=== PATIENT | male | born 1965 | race Caucasian/White ===

== ENCOUNTER 2024-07-18 19:20 | Emergency (ER) | payer OTHER, SELFPAY ==
[2024-07-18 19:21] VITALS: BP 187/111
[2024-07-18 19:46] LABS: % Basophils 0.1 % (0-2); % Eosinophils 0.9 % (0-6); % Immature Granulocytes 0.5 % (0-0.5); % Lymphocytes 2.8 % (20.5-51.1); % Monocytes 4.9 % (1.7-9.3); % Neutrophils 90.8 % (42.2-75.2); Absolute Eosinophils 0.1 10^3/uL (0-0.7); Absolute Immature Granulocytes 0.1 10^3/uL (0-0.05); Absolute Lymphocytes 0.4 10^3/uL (1.2-3.4); Absolute Monocytes 0.7 10^3/uL (0.1-0.6); Absolute Neutrophils 13.2 10^3/uL (1.4-6.5); Hematocrit 46.7 % (39.0-52.0); Hemoglobin 15.8 g/dL (13.0-18.0); Mean Corp Hgb Conc. 33.8 g/dL (33.0-37.0); Mean Corpuscular Hgb 30.7 pg (27.0-31.0); Mean Corpuscular Volume 90.7 fL (80.0-94.0); Mean Platelet Volume 9.3 fL (7.4-10.4); Nucleated Red Blood Cells % 0 % (-); Platelet Count 304 10^3/uL (130-400); Red Blood Cell Count 5.15 10^6/uL (4.70-6.10); Red Cell Dist. Width 13.3 % (11.5-14.5); White Blood Cell Count 14.6 10^3/uL (4.8-10.8)
[2024-07-18 20:06] LABS: ALT (SGPT) 47 U/L (0-50); AST (SGOT) 44 U/L (17-59); Albumin 4.7 g/dl (3.5-5.0); Alkaline Phosphatase 75 U/L (38-126); Blood Urea Nitrogen 22 mg/dl (9-20); Calcium 9.4 mg/dl (8.4-10.2); Carbon Dioxide 22 mmol/L (22-30); Chloride 105 mmol/L (98-107); Glucose 120 mg/dl (70-99); Lipase 94 U/L (23-300); Potassium 4.4 mmol/L (3.5-5.1); Sodium 137 mmol/L (135-145); Total Bilirubin 0.6 mg/dl (0.2-1.3); Total Protein 7.4 g/dl (6.3-8.2); eGFR > 60.00
[2024-07-18 20:14] LABS: Urine Albumin Negative (Neg - Trace); Urine Bilirubin Negative (Negative); Urine Character Clear (Clear); Urine Color Yellow; Urine Glucose Negative (Negative); Urine Ketone Trace (Negative); Urine Leukocyte Negative (Negative); Urine Nitrite Negative (Negative); Urine Occult Blood 2+ (Negative); Urine Urobilinogen Negative (Neg - 1+)
[2024-07-18 20:17] VITALS: BP 158/94
[2024-07-18 20:20] VITALS: BP 153/92
[2024-07-18 20:30] LABS: Urine Red Blood Cell 0-2 /HPF (0-2); Urine Squamous Cell 0-2 /LPF (Few); Urine White Cell 0-2 /HPF (0-5)
[2024-07-18] MEDS: PROTONIX IV 40 MG IV (20:56)
[2024-07-18] MEDS: TORADOL 15 MG IV (20:56)
[2024-07-18] MEDS: NSS 1000 IV (20:59)
[2024-07-18 21:00] VITALS: BP 137/91
[2024-07-18 22:00] VITALS: BP 137/91
--- NOTE | 2024-07-18 22:56 | ED.GENMED ---
History of Present Illness
<Josiah Velazco MD - Last Filed: 07/19/24 12:37>
General
Chief Complaint: Abdominal Pain
Source: patient
Exam Limitations: none
Time Seen by Provider: 07/18/24 20:33
Nursing documentation reviewed up to this point in time: agreed with
History of Present Illness
History of Present Illness:
Patient presents to ED secondary to persistent nonbloody diarrhea along with vomiting episodes, as well as abdominal cramping sensation, starting this afternoon. Patient's spouse has experienced similar symptoms 2 days ago, but now has improved.
Denies fever or chills. Denies dizziness. Denies weakness. Denies shortness of breath. Denies back pain. Denies recent travel.
Past History
<Josiah Velazco MD - Last Filed: 07/19/24 12:37>
Past History
ED Past Medical History: None
ED Past Surgical History: None
Review of Systems
<Josiah Velazco MD - Last Filed: 07/19/24 12:37>
Review of Systems
Allergies reviewed?: Yes
All Other Systems: ROS reviewed and negative except as documented in HPI and ROS
Constitutional: Reports no symptoms; Denies fever or chills
Respiratory: Reports no symptoms
Cardiac: Reports no symptoms
ABD/GI: Reports abdominal pain, nausea, vomiting and diarrhea
Musculoskeletal: Reports no symptoms
Skin: Reports no symptoms
Neurological: Reports no symptoms
Phy Exam
<Josiah Velazco MD - Last Filed: 07/19/24 12:37>
Physical Exam
Physical Exam:
Physical Exam
General: mild distress, not acutely ill. afebrile.
Head: nc/at. eomi
Neck: supple. no meningeal signs.
Heart: tachycardic, no murmur.
Lungs: no acute respiratory distress. clear bilaterally
Abdomen: normal bowel sounds. not tender. no distention
Neuro: alert and oriented. no focal neurological deficits
Skin: no rash
Psychiatric: well kept. interactive and cooperative
Extremities: no edema. no calf tenderness.
Course
<Josiah Velazco MD - Last Filed: 07/19/24 12:37>
Orders/Labs/Results
Orders:
Orders
07/18/24 19:26
Electrocardiogram (*1) Urgent
Reason for Study: Abdominal Pain
IV Insert/Care/Rem.- Treatment PRN
07/18/24 19:27
EKG- Treatment ONCE
07/18/24 19:38
Complete Blood Count/With Diff Urgent
Comprehensive Metabolic Panel Urgent
Lipase Urgent
07/18/24 19:59
Urinalysis Reflex To Culture Urgent
Date Specimen was Collected: 07/18/24
Time Specimen was Collected: 19:58
Urine Microscopic Reflex Cult Urgent
07/18/24 20:48
0.9% Sodium Chloride 1000 ml [Nss] 1,000 ml IV BOLUS
Ketorolac [Toradol] 15 mg IV NOW STA
Pantoprazole [Protonix IV] 40 mg IV NOW STA
07/18/24 23:16
Morphine Sulfate 2 mg IV NOW STA
07/19/24 00:52
Acetaminophen [Tylenol] 650 mg .ROUTE .STK-MED ONE
07/19/24 00:53
Acetaminophen [Tylenol] 650 mg PO NOW STA
07/19/24 02:20
Ibuprofen [Motrin] 800 mg .ROUTE .STK-MED ONE
07/19/24 02:23
Ibuprofen [Motrin] 800 mg PO NOW STA
Abnormal Lab Results
07/18/24 07/18/24
19:38 19:59
WBC 14.6 H 10^3/uL
(4.8-10.8)
Abs Immat Gran (auto) 0.1 H 10^3/uL
(0-0.05)
Absolute Neuts (auto) 13.2 H 10^3/uL
(1.4-6.5)
Absolute Lymphs (auto) 0.4 L 10^3/uL
(1.2-3.4)
Absolute Monos (auto) 0.7 H 10^3/uL
(0.1-0.6)
Neutrophils % 90.8 H %
(42.2-75.2)
Lymphocytes % 2.8 L %
(20.5-51.1)
BUN 22 H mg/dl
(9-20)
Glucose 120 H mg/dl
(70-99)
Urine Ketones Trace A
(Negative)
Ur Occult Blood Reflex 2+ A
(Negative)
07/18/24 19:38
07/18/24 19:38
Vital Signs
Initial and Last Documented VS:
Initial Vital Signs
Temp Pulse Resp BP Pulse Ox
99.0 F 131 20 187/111 98
07/18/24 19:21 07/18/24 19:21 07/18/24 19:21 07/18/24 19:21 07/18/24 19:21
Last Documented Vital Signs
Temp Pulse Resp BP Pulse Ox
100.7 F H 104 20 154/85 94
07/19/24 02:22 07/19/24 02:15 07/18/24 19:21 07/19/24 02:00 07/19/24 02:15
<Jenifer Nance DO - Last Filed: 07/19/24 06:34>
Orders/Labs/Results
Orders:
Orders
07/18/24 19:26
Electrocardiogram (*1) Urgent
Reason for Study: Abdominal Pain
IV Insert/Care/Rem.- Treatment PRN
07/18/24 19:27
EKG- Treatment ONCE
07/18/24 19:38
Complete Blood Count/With Diff Urgent
Comprehensive Metabolic Panel Urgent
Lipase Urgent
07/18/24 19:59
Urinalysis Reflex To Culture Urgent
Date Specimen was Collected: 07/18/24
Time Specimen was Collected: 19:58
Urine Microscopic Reflex Cult Urgent
07/18/24 20:48
0.9% Sodium Chloride 1000 ml [Nss] 1,000 ml IV BOLUS
Ketorolac [Toradol] 15 mg IV NOW STA
Pantoprazole [Protonix IV] 40 mg IV NOW STA
07/18/24 23:16
Morphine Sulfate 2 mg IV NOW STA
07/19/24 00:52
Acetaminophen [Tylenol] 650 mg .ROUTE .STK-MED ONE
07/19/24 00:53
Acetaminophen [Tylenol] 650 mg PO NOW STA
07/19/24 02:20
Ibuprofen [Motrin] 800 mg .ROUTE .STK-MED ONE
07/19/24 02:23
Ibuprofen [Motrin] 800 mg PO NOW STA
Abnormal Lab Results
07/18/2424
19:38 19:59
WBC 14.6 H 10^3/uL
(4.8-10.8)
Abs Immat Gran (auto) 0.1 H 10^3/uL
(0-0.05)
Absolute Neuts (auto) 13.2 H 10^3/uL
(1.4-6.5)
Absolute Lymphs (auto) 0.4 L 10^3/uL
(1.2-3.4)
Absolute Monos (auto) 0.7 H 10^3/uL
(0.1-0.6)
Neutrophils % 90.8 H %
(42.2-75.2)
Lymphocytes % 2.8 L %
(20.5-51.1)
BUN 22 H mg/dl
(9-20)
Glucose 120 H mg/dl
(70-99)
Urine Ketones Trace A
(Negative)
Ur Occult Blood Reflex 2+ A
(Negative)
07/18/24 19:38
07/18/24 19:38
Vital Signs
Initial and Last Documented VS:
Initial Vital Signs
Temp Pulse Resp BP Pulse Ox
99.0 F 131 20 187/111 98
07/18/24 19:21 07/18/24 19:21 07/18/24 19:21 07/18/24 19:21 07/18/24 19:21
Last Documented Vital Signs
Temp Pulse Resp BP Pulse Ox
100.7 F H 104 20 154/85 94
07/19/24 02:22 07/19/24 02:15 07/18/24 19:21 07/19/24 02:00 07/19/24 02:15
<Jenifer Nance DO - Last Filed: 07/19/24 06:34>
*Critical Care Note
Total Time (30-74mins, 75-104mins- exclusive of procedures): Not Applicable
<Jenifer Nance DO - Last Filed: 07/19/24 06:34>
Update Note
Update Note:
02:15
Patient feeling improved. Much less abdominal cramping and abdominal exam is soft, without appreciable tenderness.
He has had no diarrhea since arrival to the ED.
He is tolerating oral fluids. Noted to have low-grade fever, has been given a dose of Tylenol.
Tachycardia has resolved.
I suspect viral gastroenteritis. Likely similar symptoms that had 2 days ago.
Will discharge to home with recommendations to limit his diet to clear liquids over the next 24 hours, slowly advance to soft bland foods as tolerated.
Prescription for Zofran for as needed nausea, Bentyl for as needed cramps. Recommend [id number] Imodium if diarrhea recurs.
Prompt follow-up with PCP for recheck.
Return precautions discussed.
ED Attending Note
<Josiah Velazco MD - Last Filed: 07/19/24 12:37>
-
Portions of this chart may have been created with voice recognition software.� Occasional wrong word or��sound alike� substitutions may have occurred due to the inherent limitations of voice recognition software.
Discharge Plan
Departure
Patient Disposition: Home (Routine Discharge)
Date of Disposition: 07/19/24
Time of Disposition: 02:13
Patient with high blood pressure during this ER visit?: No
Condition: Good
Discharge Problem:
Acute gastroenteritis
Instructions: Viral gastroenteritis in adults, Clear Liquid Diet
Prescriptions:
New
dicyclomine 20 mg tablet
20 mg PO QID PRN (Reason: abdominal pain) Qty: 20 0RF
ondansetron 4 mg tablet,disintegrating
4 mg PO QID PRN (Reason: nausea and vomiting) Qty: 20 0RF
No Action
levofloxacin 500 mg tablet
500 mg PO DAILY 10 Days Qty: 10 0RF
prednisone 10 mg Tablet
See Rx Instructions .ROUTE .COMPLEX Qty: 30 0RF
Rx Instructions:
Take By Mouth:
40 mg daily x3 days, 30 mg daily x3 days,
20 mg daily x3 days, 10 mg daily x3 days.
hydrocodone-acetaminophen 5-325 mg tablet
1 tab PO Q8H PRN (Reason: pain) Qty: 7 0RF
Referrals:
Sade Garcia DO [Family Provider] - Call in 1-3 days for appt
Interventions
Interventions:
*Risk Screen - Suicide Last Done: 07/18/24 19:21
*General Assessment Last Done: 07/18/24 19:21
*Neglect/Abuse Screening Last Done: 07/18/24 19:21
ED- Fall Risk Assessment Last Done: 07/18/24 20:31
*ED COVID-19 Vaccine History Last Done: 07/18/24 19:21
*Nursing Disposition Last Done: 07/19/24 02:37
KZ-Gxjzxn-Tnevubibpw Assessment Last Done: 07/18/24 20:31
Discharge Date and Time
Discharge Date/Time: 07/19/24 02:37
Print Language: INDONESIAN
[2024-07-18 23:00] VITALS: BP 136/88
[2024-07-18] MEDS: MORPHINE SULFATE 2 MG IV (23:25)
[2024-07-19] VITALS: BP 155/83
[2024-07-19] MEDS: TYLENOL 650 MG PO (00:53)
[2024-07-19 01:00] VITALS: BP 172/87
[2024-07-19 02:00] VITALS: BP 154/85
[2024-07-19] MEDS: MOTRIN 800 MG PO (02:23)
== END 2024-07-19 02:37 | disposition home or self-care (01) ==
LOC: EMR 19:20
PROVIDERS: Emergency Medicine; EMERGENCY PHYSICIAN Emergency Medicine; FAMILY PHYSICIAN Internal Medicine
DX: K52.9 Noninfective gastroenteritis and colitis, unspecified (principal)
CPT/HCPCS: 99283; 96374; 96375; 96361; 80053; 81003; 81015; 83690; 85025; 93005

== ENCOUNTER 2025-06-11 06:18 | Emergency (ER) | payer BC, SELFPAY ==
[2025-06-11 06:23] VITALS: BP 163/103
[2025-06-11 06:42] VITALS: BMI 39.7
--- NOTE | 2025-06-11 06:48 | ED.GENMED ---
History of Present Illness
General
Chief Complaint: Musculo-Skeletal Complaint
Source: patient
Exam Limitations: none
Time Seen by Provider: 06/11/25 06:27
Nursing documentation reviewed up to this point in time: agreed with
History of Present Illness
History of Present Illness:
59-year-old male with past medical history as noted presents for evaluation of right knee pain. Patient reports that for the past 2 weeks or so he has had some mild pain in the anterior right knee particularly when kneeling. He says he has been up
and down off the floor taking care of his dog who has been sick recently. He says that over the past 24 hours pain has increased and this morning he has some swelling in the anterior knee which prompted visit to the emergency room. Denies fever or
chills. He denies any other acute issues.
Past History
Past History
ED Past Medical History: None
ED Past Surgical History: None
Review of Systems
Review of Systems
All Other Systems: ROS reviewed and negative except as documented in HPI and ROS
Constitutional: Denies fever or chills
Musculoskeletal: Reports joint pain and joint swelling
Phy Exam
Physical Exam
Physical Exam:
General: Well appearing and non-toxic
HEENT: protecting airway
Neck: appears supple
CV: No evidence of cyanosis
Resp: No accessory muscle use
Abd: Non-distended
Extremities: No deformities; on exam of the right knee he has swelling in the prepatellar region with significant tenderness to the patella but no significant joint line tenderness, no tenderness in the popliteal fossa, no erythema or warmth of the
joint; he is able to move the knee although he has pain with range of motion; he has strong pulses in the right lower extremity popliteal and DP/PT
Neuro: Alert
Psych: Normal affect
Skin: Intact
Scores
Heart Failure Risk
Heart Failure Risk Score: Not Applicable
Heart Score for Chest Pain Patients
STEMI patient?: Not applicable
Withdrawal Assessment of Alcohol
Withdrawal Assessment Completed?: Not applicable
Course
Orders/Labs/Results
Orders:
Orders
06/11/25 06:22
Knee, Right 4 or More Views [CR Knee- Right 4 Or More View*] Urgent
Comment:
Reason For Exam: pain and swelling,onset 2 weeks
06/11/25 06:49
Ketorolac [Toradol] 30 mg IM NOW STA
06/11/25 07:11
Body Fluid Crystals Urgent
What is the Body Fluid: joint
Date Specimen was Collected: 06/11/25
Time Specimen was Collected: 07:10
Fluid Culture with Gram Stain Urgent
BRITT Source: Joint Fluid
Specimen Description:
Date Specimen was Collected: 06/11/25
Time Specimen was Collected: 07:10
Vital Signs
Initial and Last Documented VS:
Initial Vital Signs
Temp Pulse Resp BP Pulse Ox
36.7 C 84 20 163/103 97
06/11/25 06:23 06/11/25 06:23 06/11/25 06:23 06/11/25 06:23 06/11/25 06:23
Last Documented Vital Signs
Temp Pulse Resp BP Pulse Ox
36.7 C 68 18 148/88 98
06/11/25 06:23 06/11/25 09:00 06/11/25 09:00 06/11/25 09:00 06/11/25 09:00
Procedures
Incision/Drainage/Joint Aspiration
Right Knee:
Preparation: cleaned with Betadine
Type of procedure: aspiration
Nature of site: other (joint effusion)
How much fluid was obtained?: small amount
Fluid description: clear and blood tinged
Treatment: bandaid applied
MDM/Problems Addressed
Differential Diagnosis Includes:
Prepatellar bursitis, very low clinical suspicion for fracture or dislocation in the absence of traumatic mechanism; low clinical suspicion for septic arthritis in the absence of fever, significant joint effusion, redness or warmth
MDM/Problems Addressed:
59-year-old male presents to the ER for evaluation of right knee pain for the past 2 weeks worse over the past 24 hours�he says pain seems to be worse when kneeling on his knee, he has been up and down off of his knee helping his dog recently.
Hypertensive but otherwise normal vitals. Exam is as above. X-ray of the knee reviewed by me shows no fracture, small effusion. Low suspicion for septic arthritis or gout; I did perform arthrocentesis and results are pending. Plan likely for
pain control/supportive care, orthopedic referral. We did speak about using NSAIDs and Tylenol but patient says pain is quite severe and limiting function and so for this reason very short prescription of oxycodone sent for breakthrough pain as
well.
Received a call from lab�now in the fluid to perform cell count, fluid very viscous. They can do a culture and Gram stain. Overall my clinical suspicion for septic arthritis is extremely low but is based on history and exam as well as clinical
appearance and the appearance of the fluid on arthrocentesis which appeared to be normal synovial fluid with tinge of blood. Plan to discharge with supportive care as described above with orthopedic referral. All questions answered.
*Radiology
Radiology exam reviewed: preliminary read by ED provider
*Pulse Oximetry
SaO2: 97
Oxygen Mode of Delivery: Room air
Patient hypoxic: no (97)
*Critical Care Note
Total Time (30-74mins, 75-104mins- exclusive of procedures): Not Applicable
ED Attending Note
-
Portions of this chart may have been created with voice recognition software.� Occasional wrong word or��sound alike� substitutions may have occurred due to the inherent limitations of voice recognition software.
Discharge Plan
Departure
Patient Disposition: Home (Routine Discharge)
Date of Disposition: 06/11/25
Time of Disposition: 09:03
Patient with high blood pressure during this ER visit?: Yes
Discharge Problem:
Bursitis, prepatellar
Instructions: Bursitis - ED (DC)
Prescriptions:
New
oxycodone 5 mg tablet
5 mg PO Q8H PRN (Reason: Pain) Qty: 7 0RF
No Action
valacyclovir 1 gram Tablet
1,000 mg PO BID PRN (Reason: cold sore)
valsartan 80 mg Tablet
80 mg PO DAILY
amlodipine 10 mg Tablet
10 mg PO DAILY
colchicine 0.6 mg Tablet
0.6 mg PO DAILY PRN (Reason: gout)
Referrals:
Boston Foote MD [Active, Orthopedics] - Call in 1-3 days for appt
Activity Restrictions/Additional Instructions:
You should rest your knee, keep it elevated while resting. You should apply ice to the knee for about 15 minutes at a time 3-5 times a day. You should take Tylenol and ibuprofen for the next few days to help control your knee pain. If you have
pain that is still severe despite these medications you were prescribed oxycodone to take only as needed. If you feel your symptoms are getting worse or if you develop fever or chills, increased swelling or any other concerning symptoms please
return to the ER to be reassessed. Otherwise you should call to schedule an appoint with the orthopedist within the next week or 2.
Thank you for visiting the Emergency Department at [facility].
1. Please schedule a follow up appointment as directed. Call first thing tomorrow morning to make an appointment.
2. If indicated, please take your medications as instructed and indicated on discharge paperwork.
3. If any of your symptoms do not improve, or persist, or become more severe within 6-12 hours, please return to the emergency department for further care.
4. Please return to the emergency department if you develop a headache, neck pain/stiffness, fever greater than 100.4F, chest pain, shortness of breath, persistent nausea, vomiting, slurred speech, difficulty walking, numbness/tingling, weakness,
signs of infection or any other symptoms that are worrisome to you.
Please call [phone] if you have any questions.
Interventions
Interventions:
*Risk Screen - Suicide Last Done: 06/11/25 06:23
*General Assessment Last Done: 06/11/25 06:23
*Neglect/Abuse Screening Last Done: 06/11/25 06:23
*ED- Fall Risk Assessment Last Done: 06/11/25 06:23
*ED COVID-19 Vaccine History Last Done: 06/11/25 06:23
*ED Influenza Vaccine History Last Done: 06/11/25 06:23
*Nursing Disposition Last Done: 06/11/25 09:14
ED-Musculoskeletal Assessment Last Done: 06/11/25 07:20
Discharge Date and Time
Discharge Date/Time: 06/11/25 09:16
Print Language: ARMENIAN
[2025-06-11] MEDS: TORADOL 30 MG IM (06:58)
[2025-06-11 06:59] VITALS: BP 144/86
[2025-06-11 08:00] VITALS: BP 144/89
[2025-06-11 09:00] VITALS: BP 148/88
== END 2025-06-11 09:16 | disposition home or self-care (01) ==
LOC: EMR 06:18
PROVIDERS: EMERGENCY PHYSICIAN Emergency Medicine; FAMILY PHYSICIAN Internal Medicine
DX: M70.41 Prepatellar bursitis, right knee (principal); Y93.K9 Activity, other involving animal care; R03.0 Elevated blood-pressure reading, without diagnosis of hypertension
CPT/HCPCS: 99284; 96372; 20610; 73564; 87015; 87070; 87205; 89060